=== PATIENT | female | born 1965 | race Caucasian/White ===

== ENCOUNTER 2021-12-28 05:36 | Day surgery (SDC) | payer OTHER ==
[~2021-12-28] VITALS: Ht 168 cm; Wt 73.0 kg
[~2021-12-28 05:36] MED LIST: ALLEGRA ALLERG180 MG PO; CENTRUM CHEWAB1 EAC2 PO; DICLOFENAC SODI75 MG PO; OLMESARTAN MEDO40 MG PO; PAROXETINE 20MG20 MG PO
[2021-12-28 06:42] LABS: BUN/CREAT RATIO (CALC) 17.9 RATIO; CREATININE 0.56 mg/dL (0.51-0.95); POTASSIUM 3.9 mmol/L (3.5-5.1)
[2021-12-29 05:53] LABS: BASOPHIL 0.1 % (0-2); EOSINOPHIL 0.8 % (0-5); HGB 8.8 g/dl (12.5-16.0); LYMPHOCYTE 27.4 % (15-48); MCH 32.4 pg (25.0-31.0); MCHC 32.6 g/dL (32.0-36.0); MCV 99.3 fL (78.0-100.0); MONOCYTE 10.6 % (0-12); MPV 10.4 fL (6.0-9.5); NEUTROPHIL 60.8 % (41-80); NRBC 0; PLT 213 K/uL (150-400); RBC 2.72 M/uL (4.20-5.40); RDW 13.2 % (11.5-14.0); WBC 7.9 K/uL (4.0-10.5)
[2021-12-29 06:16] LABS: BUN/CREAT RATIO (CALC) 12.5 RATIO; CREATININE 0.64 mg/dL (0.51-0.95); POTASSIUM 4.1 mmol/L (3.5-5.1)
[2021-12-29] MEDS ORDERED: OXYCODONE-ACET1 EAC1 PO (08:49)
[2021-12-29] MEDS ORDERED: XARELTO10 MG PO (08:49)
[2021-12-29] MEDS ORDERED: FEOSOL325 MG PO (08:49)
[2021-12-29] MEDS ORDERED: ULTRA-LIGHT RO1 EACH XX (08:51)
== END 2021-12-29 11:20 | disposition home or self-care (01) ==
LOC: FAS 05:36 → FMS 05:36 → FAS 10:00
PROVIDERS: Legal Medicine
DX: M16.11 Unilateral primary osteoarthritis, right hip (principal); I10 Essential (primary) hypertension; F32.A Depression, unspecified; F17.200 Nicotine dependence, unspecified, uncomplicated; Z91.048 Other nonmedicinal substance allergy status; Z72.89 Other problems related to lifestyle; Z79.1 Long term (current) use of non-steroidal anti-inflammatories (NSAID); Z79.899 Other long term (current) drug therapy
CPT/HCPCS: 36415; 73501; 76000; 80048; 85025; 86850; 86900; 86901; 94010; 94760; 94762; 97162; 97165; 97530-GP; C1776; J0171; J0697; J1100; J1170; J1885; J2250; J2270; J2405; J2704; J2795; J3010; J7120